=== PATIENT | female | born 1985 | race Two or more races ===

== ENCOUNTER 2024-11-13 00:26 | Emergency (ER) | payer MEDICAID, OTHER ==
[~2024-11-13] VITALS: Ht 172.7 cm; Wt 78.2 kg
[2024-11-13 00:28] VITALS: BP 123/75; PULSE 86; RESP 22; TEMP 98.4; O2SAT 99
== END 2024-11-13 01:23 | disposition left against medical advice (07) ==
LOC: ER 00:26
DX: F41.9 Anxiety disorder, unspecified (principal); R11.2 Nausea with vomiting, unspecified; Z53.21 Procedure and treatment not carried out due to patient leaving prior to being seen by health care provider